=== PATIENT | female | born 1975 | race Caucasian/White ===

== ENCOUNTER 2022-04-16 09:10 | Emergency (ER) | payer SELFPAY ==
[2022-04-16 09:16] VITALS: BP 140/75; PULSE 75; RESP 18; TEMP 35.7; O2SAT 97; BMI 29.2
--- NOTE | 2022-04-16 09:47 | ED.GENADULT ---
HPI - General Adult General Chief complaint: Dizziness/Vertigo Stated complaint: elevated bp,dizzy,lightheaded Time Seen by Provider: 04/16/22 09:28 History of Present Illness HPI narrative: 46-year-old woman presenting to the emergency department with complaint of dizziness and some lightheadedness and feeling generally weak. She will at times mention that is feeling anxious but when asked directly denies anxiety. Does have some mild nausea which she then attributes to a minimal breakfast. This developed around the time of going to work about an hour ago. She does not recall any particular movement to set this off. She does say that things are spinning but that is not really going on now. No headache noted. Does have some mild double vision but this is not new and she had been wearing some corrective lenses with this and feels she needs re-evaluation. She also has had mid abdominal pain since cholecystectomy last summer. Has not apparently address this in follow-up. Had a similar episode to what she is feeling now a week ago that lasted about an hour and did not follow-up. When asked to demonstrate whether not there is dizziness or reproducibility she says that is not present. Was never feeling like she could not walk straight. Does not want any medicine for treatment at this time. Has had some sense of nasal congestion since COVID infection some time back. Is not having your fullness really. Underlying history of diabetes and is concerned about her blood pressure as well. I noted to be on arrival 140/75. Later mentioning ?stomach problems? and bloating. Related Data Home Medications Medication Instructions Recorded Confirmed amlodipine 10 mg tablet mg 04/16/22 atorvastatin 20 mg tablet mg 04/16/22 metformin 500 mg tablet,extended mg PO 04/16/22 release 24 hr Allergies Allergy/AdvReac Type Severity Reaction Status Date / Time Tetanus Vaccines and Toxoid Allergy Unknown Verified 04/16/22 09:22 Review of Systems Status of ROS: Reports: 10 or more systems reviewed and unremarkable except as noted in History and below [facility] Social History Smoking Status: Never smoker How often do you have a drink containing alcohol: never AUDIT-C Alcohol total score: 0 Non-prescribed substance use: denies use Exam Narrative: Exam Narrative: Pleasant. NAD. Cranial nerves 2-12 look to be intact. No nystagmus. She at times appears mildly breathless. Appears mildly anxious. Skin is warm and dry. No peripheral edema. Well perfused. Head is atraumatic. No reproducibility of dizziness at this time. Lungs are clear. Heart with regular rate and rhythm without murmur rub or gallop. Abdomen is soft and moderately tender to palpation directly in the midline mid upper abdomen. No masses or defect appreciated. No sensory deficits appreciated or any focal weakness. Const: Vital Signs, click to edit/add: Vital Signs - 24 hr 04/16/22 09:16 Temperature 96.3 F L Pulse Rate [Pulse Oximeter] 75 Respiratory Rate 18 Blood Pressure [Ri ght Upper Arm] 140/75 H Pulse Oximetry 97 Oxygen Delivery Me thod Room Air Documenting provider has reviewed patient's vital signs: yes Course Vital Signs Vital signs: Initial Vital Signs Temperature 96.3 F L 04/16/22 09:16 Temperature Source Temporal Artery Scan 04/16/22 09:16 Pulse Rate 75 04/16/22 09:16 Respiratory Rate 18 04/16/22 09:16 Blood Pressure 140/75 H 04/16/22 09:16 Blood Pressure Mean 96 04/16/22 09:16 Blood Pressure Position Supine 04/16/22 09:16 Pulse Oximetry 97 04/16/22 09:16 Oxygen Delivery Method 04/16/22 09:16 Vital Signs Temperature 96.3 F L 04/16/22 09:16 Pulse Rate 75 04/16/22 09:16 Respiratory Rate 18 04/16/22 09:16 Blood Pressure 140/75 H 04/16/22 09:16 Pulse Oximetry 97 04/16/22 09:16 Oxygen Delivery Method 04/16/22 09:16 Temperature 96.3 F L 04/16/22 09:16 Pulse Rate 75 04/16/22 09:16 Respiratory Rate 18 04/16/22 09:16 Blood Pressure 140/75 H 04/16/22 09:16 Pulse Oximetry 97 04/16/22 09:16 Oxygen Delivery Method 04/16/22 09:16 Medical Decision Making MDM Narrative Medical decision making narrative: Differential is potentially broad including cardiac. She does not have reproducible dizziness at this time. More of a general feeling of unwell. My sense is that these are episodes of anxiety flares. More vague symptoms at this time seem less consistent with CVA. Since she has not had follow-up since surgery, will check labs related to liver as well. Possible also the stomach issues are creating a vasovagal event of some sort. Did not feel she needed anything for nausea here in the emergency department. Also then able to tolerate p.o. so no IV fluids were given. With reassessment symptoms had abated she felt markedly improved. Lab Data Lab results reviewed: Yes I reviewed the patient's lab results Labs: Lab Results 04/16/22 04/16/22 04/16/22 Range/Units 09:45 09:57 09:57 WBC 9.39 (4.50-11.00) K/uL RBC 4.85 (4.00-5.20) m/uL Hgb 13.4 (12.0-16.0) gm/dL Hct 39.6 (33.0-51.0) % MCV 82 (80-100) fL MCH 28 (26-34) pg MCHC 34 (32-36) gm/dL RDW Coeff of Lukas 13.4 (11.5-15.5) % Plt Count 351 (140-440) K/uL Neut % (Auto) 73.0 H (42.0-72.0) % Lymph % (Auto) 21.2 (20-44) % Cross % (Auto) 4.8 (0.0-11.0) % Eos % (Auto) 0.4 (0.0-7.0) % Baso % (Auto) 0.3 (0.0-3.0) % Neut # (Auto) 6.90 (1.7-7.0) K/uL Lymph # (Auto) 1.99 (0.90-2.90) K/uL Cross # (Auto) 0.50 (0.00-0.90) K/UL Eos # (Auto) 0.04 (0.00-0.50) K/uL Baso # (Auto) 0.03 (0.00-0.30) K/uL Sodium 138 (135-149) mmol/L Potassium 3.7 (3.6-5.1) mmol/L Chloride 109 (96-114) mmol/L Carbon Dioxide 19 L (20-32) mmol/L BUN 10 (5-24) mg/dL Creatinine 0.4 L (0.5-1.5) mg/dL Estimated Creat Clear 153.37 Estimated GFR 124 ml/min Glucose 114 (60-115) mg/dL Calcium 8.9 (8.4-10.6) mg/dL Total Bilirubin 0.5 (0.1-1.5) mg/dL Direct Bilirubin 0.2 (0.0-0.5) mg/dL AST 27 (12-35) U/L ALT 32 (4-35) U/L Alkaline Phosphatase 103 (40-150) U/L Troponin I (0.01-0.04) ng/mL C-Reactive Protein 0.7 (0.5-1.0) mg/dL Total Protein 7.3 (6.0-8.3) g/dL Albumin 4.3 (3.3-5.0) g/dL Lipase 59 (23-300) U/L Urine Color Dark yellow (Yellow) Urine Appearance Cloudy A (Clear) Urine pH 5.5 (5.0-8.5) Ur Specific [place] >= 1.030 (1.000-1.030) Urine Protein Negative (Negative) Urine Glucose (UA) Negative (Negative) Urine Ketones Negative (Negative) Urine Blood Negative (Negative) Urine Nitrite Negative (Negative) Urine Bilirubin 1+ A (Negative) Urine Urobilinogen 0.2 (0.2-1.0) Ur Leukocyte Esterase Negative (Negative) Urine RBC 0-2 (0-2) Urine WBC 2-5 (0-5) Ur Squamous Epith Cells Moderate A (None-Few) Urine Bacteria Moderate A (None) Urine Mucus Moderate A (None) POC Troponin I (0.01-0.04) ng/ml 04/16/22 04/16/22 Range/Units 09:57 09:57 WBC (4.50-11.00) K/uL RBC (4.00-5.20) m/uL Hgb (12.0-16.0) gm/dL Hct (33.0-51.0) % MCV (80-100) fL MCH (26-34) pg MCHC (32-36) gm/dL RDW Coeff of Lukas (11.5-15.5) % Plt Count (140-440) K/uL Neut % (Auto) (42.0-72.0) % Lymph % (Auto) (20-44) % Cross % (Auto) (0.0-11.0) % Eos % (Auto) (0.0-7.0) % Baso % (Auto) (0.0-3.0) % Neut # (Auto) (1.7-7.0) K/uL Lymph # (Auto) (0.90-2.90) K/uL Cross # (Auto) (0.00-0.90) K/UL Eos # (Auto) (0.00-0.50) K/uL Baso # (Auto) (0.00-0.30) K/uL Sodium (135-149) mmol/L Potassium (3.6-5.1) mmol/L Chloride (96-114) mmol/L Carbon Dioxide (20-32) mmol/L BUN (5-24) mg/dL Creatinine (0.5-1.5) mg/dL Estimated Creat Clear Estimated GFR ml/min Glucose (60-115) mg/dL Calcium (8.4-10.6) mg/dL Total Bilirubin (0.1-1.5) mg/dL Direct Bilirubin (0.0-0.5) mg/dL AST (12-35) U/L ALT (4-35) U/L Alkaline Phosphatase (40-150) U/L Troponin I < 0.01 L (0.01-0.04) ng/mL C-Reactive Protein (0.5-1.0) mg/dL Total Protein (6.0-8.3) g/dL Albumin (3.3-5.0) g/dL Lipase Cancelled (23-300) U/L Urine Color (Yellow) Urine Appearance (Clear) Urine pH (5.0-8.5) Ur Specific [place] (1.000-1.030) Urine Protein (Negative) Urine Glucose (UA) (Negative) Urine Ketones (Negative) Urine Blood (Negative) Urine Nitrite (Negative) Urine Bilirubin (Negative) Urine Urobilinogen (0.2-1.0) Ur Leukocyte Esterase (Negative) Urine RBC (0-2) Urine WBC (0-5) Ur Squamous Epith Cells (None-Few) Urine Bacteria (None) Urine Mucus (None) POC Troponin I 0.00 L (0.01-0.04) ng/ml ECG Data Attestation: I personally reviewed and interpreted this ECG as follows: (Normal sinus rhythm rate of [address] elevations depressions or Q-waves.) Discharge Plan Discharge Clinical Impression: Malaise, Abdominal pain Patient Disposition: Home w/ Parent or Adult Condition: Improved Additional Instructions: Do make sure to stay well hydrated. Try to drink 2-3 L of water daily. I wonder if some of your stomach symptoms may have contributed to how you are feeling generally, also in your head. If this seems to be acting up again, you might try taking liquid antacid/anti-gas medication similar to Maalox. Sometimes after these abdominal surgeries people do have more trouble with bloating or other discomfort. I would encourage you to review symptoms with the surgeon. Try to avoid constipation. If you begin to feel more constipated, consider taking MiraLax equivalent 1-2 doses by noon and adjust to stool consistency. If feeling focal weakness, severe headache, recently severe abdominal pain, worsening and persistent dizziness, return to the emergency department. Prescriptions: No Action atorvastatin 20 mg tablet Label Comments: TAKE 1 TABLET BY MOUTH AT BEDTIME amlodipine 10 mg tablet Label Comments: TAKE 1 TABLET BY MOUTH ONCE DAILY metformin 500 mg tablet extended release 24 hr PO Label Comments: TAKE 1 TABLET BY MOUTH ONCE DAILY FOR 7 DAYS THEN 2 ONCE DAILY THEREAFTER TAKE BOTH TABLETS TOGETHER AT THE SAME TIME Follow Up/Referrals: Nakia Cummings MD [Primary Care Provider] - Stand Alone Forms: [facility] Info Instructions
[2022-04-16 10:04] LABS: Basophils Absolute Auto 0.03 K/uL (0.00-0.30); Basophils Percent Auto 0.3 % (0.0-3.0); Eosinophils Absolute Auto 0.04 K/uL (0.00-0.50); Eosinophils Percent Auto 0.4 % (0.0-7.0); Hematocrit 39.6 % (33.0-51.0); Hemoglobin* 13.4 gm/dL (12.0-16.0); Immature Granulocytes Abs Auto 0.03 K/uL (0.00-0.30); Immature Granulocytes Pct Auto 0.3 %; Lymphocytes Absolute Auto 1.99 K/uL (0.90-2.90); Lymphocytes Percent Auto 21.2 % (20-44); Mean Corpuscular HGB Conc 34 gm/dL (32-36); Mean Corpuscular Hemoglobin 28 pg (26-34); Mean Corpuscular Volume 82 fL (80-100); Monocytes Percent Auto 4.8 % (0.0-11.0); Platelet Count* 351 K/uL (140-440); RDW Coefficient of Variation % 13.4 % (11.5-15.5); Red Blood Count 4.85 m/uL (4.00-5.20); White Blood Count* 9.39 K/uL (4.50-11.00)
[2022-04-16 10:06] LABS: Slide Review Reflex No
[2022-04-16 10:14] LABS: Appearance Urine Cloudy (Clear); Bilirubin Urine 1+ (Negative); Blood Urine Negative (Negative); Color Urine Dark yellow (Yellow); Glucose Urine Negative (Negative); Ketones Urine Negative (Negative); Leukocyte Esterase Urine Negative (Negative); Nitrite Urine Negative (Negative); Protein Urine Negative (Negative); Specific Gravity Urine >= 1.030 (1.000-1.030); Urobilinogen Urine 0.2 (0.2-1.0); pH Urine 5.5 (5.0-8.5)
[2022-04-16 10:34] LABS: Bacteria Urine Moderate; RBC Urine 0-2 (0-2); Squamous Epithelial Cell Urine Moderate (None-Few)
[2022-04-16 10:35] LABS: Mucus Urine Moderate
[2022-04-16 10:44] LABS: Troponin I* < 0.01 ng/mL (0.01-0.04)
[2022-04-16 10:54] LABS: Albumin* 4.3 g/dL (3.3-5.0); Chloride* 109 mmol/L (96-114); Sodium* 138 mmol/L (135-149)
[2022-04-16 10:55] LABS: Potassium* 3.7 mmol/L (3.6-5.1)
[2022-04-16 10:57] LABS: Aspartate Amino Transferase* 27 U/L (12-35); Bilirubin Direct* 0.2 mg/dL (0.0-0.5); Bilirubin Total* 0.5 mg/dL (0.1-1.5); Carbon Dioxide* 19 mmol/L (20-32); Creatinine* 0.4 mg/dL (0.5-1.5); Est. Creatinine Clearance* 153.37; Estimated Glomerular Filt Rate 124 ml/min
[2022-04-16 10:58] LABS: Alanine Aminotransferase* 32 U/L (4-35); Alkaline Phosphatase* 103 U/L (40-150); Blood Urea Nitrogen* 10 mg/dL (5-24); Calcium* 8.9 mg/dL (8.4-10.6); Glucose* 114 mg/dL (60-115); Lipase* 59 U/L (23-300); Total Protein* 7.3 g/dL (6.0-8.3)
[2022-04-16 11:00] LABS: C Reactive Protein* 0.7 mg/dL (0.5-1.0)
== END 2022-04-16 11:57 | disposition home or self-care (01) ==
PROVIDERS: Emergency Provider Family Medicine; PCP Family Medicine
DX: R53.81 Other malaise (principal); R10.9 Unspecified abdominal pain
CPT/HCPCS: 36415; 80048; 80076; 81001; 82962; 83690; 84484; 85025; 86140; 87086; 87186; 93005; 99284

== ENCOUNTER 2023-11-14 12:50 | Emergency (ER) | payer OTHER, SELFPAY ==
[2023-11-14] VITALS (12 sets, daily range): BP systolic 134–150; BP diastolic 66–97; PULSE 79–89; RESP 16; TEMP 35.8; O2SAT 94–98; BMI 29.6
--- NOTE | 2023-11-14 13:42 | CRLHL7_ITS ---
For Patients: As a result of the Cures Act, medical imaging exams and procedure reports are released immediately into your electronic medical record. You may view this report before your referring provider. If you have questions, please contact your health care provider. INDICATION: Midsternal chest pain. TECHNIQUE: Chest 2 views. COMPARISON: None. FINDINGS: No pneumothorax or pleural effusion. Lungs are clear. Cardiac and mediastinal contours are within normal limits. Upper abdomen and osseous structures as imaged show no acute abnormality. IMPRESSION: No evidence of acute cardiopulmonary disease. Dictated by Iban Eastman MD @ 11/14/2023 2:35:39 PM (Electronically Signed)
--- OUTSIDE RECORDS SUMMARY | 2023-11-14 13:51 | XMS_ITS | Clinical Summary ---
Author Organization [employer] [facility] [employer] Address [place], [place] [address] Care Team Providers Care Janitorial Manager Name Role Phone Stephani Mata Primary Care Provider Allergies Active Allergy Reactions Criticality Noted Date Comments Tetanus And Diphtheria Toxoids, Adsorbed, Adult Edema 01/14/2014 Local swelling and edema. Medications Medication Sig Dispensed Refills Start Date End Date Status metFORMIN (GLUCOPHAGE XR) 500 mg Extended-Release tabletIndications:Ty pe 2 diabetes mellitus without complication, without long-term current use of insulin (HC) Take 2 Tablets (1,000 mg) by mouth two times daily with meals. 360 Tablet 3 07/07/2022 Active sertraline (ZOLOFT) 50 mg tabletIndications:An xiety Take 1 Tablet (50 mg) by mouth every morning. 90 Tablet 3 07/07/2022 Active traZODone (DESYREL) 50 mg tabletIndications:In somnia, idiopathic Take 1 Tablet (50 mg) by mouth at bedtime. 90 Tablet 3 07/07/2022 Active atorvastatin (LIPITOR) 20 mg tabletIndications:Ty pe 2 diabetes mellitus without complication, without long-term current use of insulin (HC) Take 1 Tablet (20 mg) by mouth at bedtime. 90 Tablet 3 07/07/2022 Active amLODIPine (NORVASC) 10 mg tabletIndications:HT N (hypertension) Take 1 Tablet (10 mg) by mouth once daily. 90 Tablet 3 07/07/2022 Active Active Problems Problem Noted Date Diagnosed Date Type 2 diabetes mellitus wit hout complication, without long-term current use of insulin 06/30/2021 HTN (hypertension) 06/30/2021 Insomnia 01/30/2014 Encounters Date Type Department Care Team Description 11/14/2023 Nurse Triage [facility] [address] [place] [address] Stephani Mata PA 11/11/2023 12:30 PM CDT Office Visit [facility] [address] [place] [address] Indy Ortega PsyD, LP Individual Therapy 11/11/2023 Travel 11/11/2023 Nurse Triage [facility] [address] [place] [address] Stephani Mata PA Irregular Heart Beat 11/11/2023 Nurse Triage [facility] [address] [place] [address] Stephani Mata PA 09/19/2023 8:30 AM CDT Office Visit [address] [phone] Maria C Pathak [facility] Visit; Individual Therapy 09/19/2023 Travel 09/05/2023 8:30 AM CDT Office Visit [address] [address] Maria C Pathak, [facility] Visit; [facility] Therapy[facility] 09/05/2023 Travel from Last 3 Months Immunizations Name Administration Dates Next Due COVID-19 vaccine (Moderna 100mcg/0.5mL) BETSY MARTINEZ 07/30/2020,07/02/2020 MMR 10/08/1998 Family History Medical History Relation Name Comments Diabetes Brother 1 Diabetes Brother 2 Good Health Brother 3 Diabetes Father Hypertension Father Diabetes Mother Hypertension Mother Diabetes Sister Hypertension Sister Cancer-breast No Family History Relation Name Status Comments Brother 1 Brother 2 Brother 3 Father Mother Sister Social History Tobacco Use Types Packs/Day Years Used Date Smoking Tobacco: Never Smokeless Tobacco: Never Tobacco Cessation:Counseling Given: No Alcohol Use Standard Drinks/Week Comments Not Currently 0 (1 standard drink = 0.6 oz pur e alcohol) PHQ-2 Answer Date Recorded PHQ-2 TOTAL SCORE 3 09/19/2023 Social Connections Answer Date Recorded Frequency of Communication with Friends and Fami ly Not on file 04/04/2021 Financial Resource Strain Answer Date R ecorded Difficulty of Paying Living Expenses Not on file 04/04/2021 Difficulty of Paying Living Expenses Not on file 04/04/2021 Sex and Gender Information Value Date Recorded Sex Assigned at Not on file Gender Identity Not on file Sexual Orientation Not on file Obstetrics History Last Filed Vital Signs Vital Sign Reading Time Taken Comments Blood Pressure 154/85 11/04/2022 11:44 AM CDT Pulse 81 11/04/2022 11:22 AM CDT Temperature 37.2 ??C (98.9 ??F) 08/07/2020 3:57 PM CD T Respiratory Rate 18 04/08/2014 11:05 AM INTENSIVE CARE UNIT REGISTERED NURSE Oxygen Saturation 97% 11/04/2022 11:22 AM CDT Inhaled Oxygen Concentration - - Weight 76.2 kg (168 lb) 11/04/2022 11:22 AM CDT Height 160.5 cm (5' 3.19) 09/30/2021 3:13 PM CD T Body Mass Index 29.58 09/30/2021 3:13 PM CDT Plan of Treatment Upcoming Encounters Date Type Department Care Team (Late st Contact Info) Description 11/17/2023 8:10 AM CDT Office Visit [facility] [address] [place] [address] Mehreen Feliciano MD [address] [place] [address] Health Maintenance Due Date Last Done Comments Pneumococcal series for age 6-64 (1 of 2 - PCV) 1982 HIV for age 15-65 1991 Hepatitis C screening for ag e 18-79 1994 Hepatitis B series for Diabe brad (1 of 3 - 19+ 3-dose series) 1995 Fecal testing non-DNA (FIT,FOBT,iFOBT) for age 45-75 07/03/2022 07/03/2021 BMI (ht and wt on same day) for age 18+ 09/30/2022 09/30/2021, 06/30/2021, 05/25/2021, Additional history exists COVID-19 vaccine series ( season) 2022 04/26/2021, 07/30/2020, 07/02/2020 Mammogram for age 45-75 07/13/2023 07/12/2022, 08/27 Influenza for age 9-49 12/04/2023 Depression screening for age 12+ 09/18/2024 09/19/2023, 09/05/2023, 01/06/2023, Additional history exists Pap test for age 21-65 07/01/2025 07/01/2020, 2020 Lipids for age 45-75 07/08/2027 07/07/2022, 06/17/2021, 06/10/2020, Additional history exists Procedures Procedure Name Priority Date/Time Associated Diagnosis Comments XR MAMMO BILAT SCREENING Routine 07/12/2022 11:23 AM CDT Visit for screening mammogram LC LIPID PANEL AND CHOL/HDL RATIO Routine 07/07/2022 9:05 AM CDT Type 2 diabetes mellitus without complication, without long-term current use of insulin (HC) OCCULT BLOOD IFOBT STOOL Routine 07/03/2021 11:03 AM CDT Screening for colon cancer HUMAN RESOURCES TEAM MEMBER THIN PREP PAP SCREEN IMAGED Routine 07/01/2020 10:05 AM CDT Pap smear for cervical cancer screening from Last 3 Months or Most Recently Relevant to Health Maintenance Results * XR MAMMO BILAT SCREENING (07/12/2022 11:23 AM CDT) Anatomical Region Laterality Modality BREASTS, Breast Left, Breast Right Bilateral Mammography Impressions 07/12/2022 3:53 PM CDT ??There is no radiographic evidence for malignancy. ??Recommend annual mammograms. MAMMOGRAM ASSESSMENT: ??ACR 1 Negative PATIENTS: You will also receive a letter with your examination results in an easy to read format. ??If you have questions about your results, please contact your referring provider. Narrative 07/12/2022 3:53 PM CDT For Patients: As a result of the Century Cures Act, medical imaging exams and procedure reports are released immediately into your electronic medical record. You may view this report before your referring provider. If you have questions, please contact your health care provider. XR MAMMO BILAT SCREENING [[id number]] CLINICAL HISTORY: ??This is an asymptomatic 47 y.o. patient. INDICATION FOR EXAM: Mammogram Screening. TECHNIQUE: CC & MLO views were obtained. ??This study was evaluated with the assistance of Computer-Aided Detection. COMPARISON FILM: Yes 08/27/20 As Seen on TV ?? FINDINGS: ??The breasts have scattered areas of fibroglandular density. There are no dominant masses, suspicious micro calcifications or areas of architectural distortion. Stephani Mata PA MAMMO * (ABNORMAL) LC LIPID PANEL AND CHOL/HDL RATIO (07/07/2022 9:05 AM CDT) Pathologist [facility] Cholesterol, Total 221(H) 100 - 199 mg/dL 07/09/2022 10:10 AM [facility] Triglycerides 204(H) 0 - 149 mg/dL 07/09/2022 10:10 AM T [facility] HDL Cholesterol 45 >39 mg/dL 3 10:10 AM CDT [facility] VLDL Cholesterol John 37 5 - 40 mg/dL 07/09/2022 10:10 AM T [facility] LDL Chol Calc ([facility]) 139(H) 0 - 99 mg/dL 07/09/2022 10:10 AM T [facility] T. Chol/HDL Ratio 4.9(H) 0.0 - 4.4 ratio 07/09/2022 10:10 AM T [facility] Comment: ?T. Chol/HDL Ratio ?Men ??Women ?1/2 Avg.Risk ??3.4 ?3.3 ?Avg.Risk ??5.0 ?4.4 ? 2X Avg.Risk ??9.6 ?7.1 ? 3X Avg.Risk 23.4 ?? 11.0 Blood BLOOD SPECIMEN / Unknown Venipuncture / Unknown 07/07/2022 9:05 AM CDT 07/07/2022 9:07 AM CDT Narrative [facility] - 07/09/2022 10:10 AM CDT Performed at: ??01 - [facility] [address], [place] ??[id number] Special Needs Teacher: Angel Coles MD, Phone: ??[phone] Stephani BRIDGES SEND OUTS [facility] [address] [place] [id number], * OCCULT BLOOD IFOBT STOOL (07/03/2021 11:03 AM CDT) STOOL BLOOD ,IFOBT Negative Negative 07/06/2021 11:59 AM CDT [facility] Stool STOOL SPECIMEN / Unknown Non-Blood / Unknown 07/03/2021 11:03 AM CDT 07/06/2021 11:03 AM CDT Stephani BRIDGES LABORAT[facility] Performing Organization Address [facility]/State/ZIP Co de Phone Number [facility] [address] [place] [address], * HUMAN RESOURCES TEAM MEMBER THIN PREP PAP SCREEN IMAGED (07/01/2020 10:05 AM CDT) Case Report Gynecologic Cytology Report ? Case: [id number] ? Authorizing Provider: ??Stephani Mata PA Collected: ? 07/01/2020 1005 ? Ordering Location: ? [facility] ?? Received: ?07/01/2020 1052 ? Clinic ? First Screen: ?Jude Smith ? Specimen: ?HUMAN RESOURCES TEAM MEMBER ThinPrep Vial Screening, Cervical ? 07/10/2020 8:14 AM CDT [facility] INTERPRETATION/ RESULT NEGATIVE FOR INTRAEPITHELIAL LESION OR MALIGNANCY (NIL) (none) 07/10/2020 8:14 AM CDT [facility] IMEN ADEQUACY Satisfactory for evaluation Endocervical component present 07/10/2020 8:14 AM CDT [facility] HPV REQUEST HPV and PAP 07/10/2020 8:14 AM CDT [facility] Date of LMP unknown 07/10/2020 8:14 AM CDT [facility] Last Pap Date unknown 07/10/2020 8:14 AM CDT [facility] Last Pap Result First Pap/Unknown 8:14 AM CDT [facility] Abnormal Pap or [place] Bx in last 5 years No 07/10/2020 8:14 AM CDT [facility] Menstrual Status Irregular Periods 07/10/2020 8:14 AM CDT [facility] [place] Bx Done Today No 07/10/2020 8:14 AM CDT [facility] Additional Information None given 07/10/2020 8:14 AM CDT [facility] Comment: Cytology is screened at [facility], Central Laboratory - [address], [place] [address] and [facility] - [address] [place] [address], [place] [address] and [facility] - [address] [place] [address] Interpreted at [facility] - [address] [place] [address], [place] [address] Automated Review Successful 07/10/2020 8:14 AM CDT [facility] Comment:Specimen processed s uccessfully by automated semiconductor development technician device, ThinPrep Imaging System, [employer] ANCILLARY TESTING HUMAN RESOURCES TEAM MEMBER HPV Ordered, Please see separate report 07/10/2020 8:14 AM CDT [facility] Note The pap test is a screening technique, not a diagnostic procedure. It is used primarily to screen for squamous cancers and precursor lesions. Published studies have shown that it is subject to both false negative and false positive results. The pap test should not be used as the sole means to diagnose or exclude pre-malignant and malignant lesions. 07/10/2020 8:14 AM CDT [facility] Other (Cervical) Non-Blood / Unknown 07/01/2020 10:05 AM CDT 07/01/2020 10:52 AM CDT Stephani BRIDGES PATHOLOGY/CYTOL OGY [facility] [address] [place] [address], from Last 3 Months or Most Recently Relevant to Health Maintenance Care Teams Janitorial Manager Relationship Specialty Start Date End Date Stephani Mata PA [address] [place] [address] PCP - General Physician Assistant Basketball Coach 07/01/20
[2023-11-14 14:05] LABS: Basophils Absolute Auto 0.06 K/uL (0.00-0.30); Basophils Percent Auto 0.6 % (0.0-3.0); Eosinophils Absolute Auto 0.06 K/uL (0.00-0.50); Eosinophils Percent Auto 0.6 % (0.0-7.0); Hematocrit 41.4 % (33.0-51.0); Hemoglobin* 13.6 gm/dL (12.0-16.0); Immature Granulocytes Abs Auto 0.02 K/uL (0.00-0.30); Immature Granulocytes Pct Auto 0.2 %; Lymphocytes Absolute Auto 3.98 K/uL (0.90-2.90); Lymphocytes Percent Auto 40.7 % (20-44); Mean Corpuscular HGB Conc 33 gm/dL (32-36); Mean Corpuscular Hemoglobin 27 pg (26-34); Mean Corpuscular Volume 84 fL (80-100); Monocytes Percent Auto 6.2 % (0.0-11.0); Neutrophils Absolute Auto 5.04 K/uL (1.7-7.0); Neutrophils Percent Auto 51.7 % (42.0-72.0); Platelet Count* 368 K/uL (140-440); RDW Coefficient of Variation % 13.1 % (11.5-15.5); Red Blood Count 4.96 m/uL (4.00-5.20); White Blood Count* 9.77 K/uL (4.50-11.00)
[2023-11-14 14:10] LABS: Slide Review Reflex No
[2023-11-14 14:20] LABS: Chloride* 108 mmol/L (96-114); Potassium* 3.7 mmol/L (3.6-5.1); Sodium* 138 mmol/L (135-149)
[2023-11-14 14:22] LABS: Creatinine* 0.6 mg/dL (0.5-1.5); Est. Creatinine Clearance* 95.88; Estimated Glomerular Filt Rate 111 ml/min
[2023-11-14 14:23] LABS: Anion Gap 8 mEq/L (7-15); Blood Urea Nitrogen* 14 mg/dL (5-24); Calcium* 9.2 mg/dL (8.4-10.6); Carbon Dioxide* 22 mmol/L (20-32); Glucose* 126 mg/dL (60-115); Magnesium* 2.2 mg/dL (1.5-2.6)
--- NOTE | 2023-11-14 14:30 | ED_ITS ---
HPI - General Adult General Chief complaint: Hypertension Stated complaint: heart palpitations and dizzy Time Seen by Provider: 11/14/23 13:30 Source: patient and splitter head Mode of arrival: ambulatory Limitations: no limitations and language barrier History of Present Illness HPI narrative: Patient is a 48-year-old female presenting to emergency department for chest pressure and palpitations. Has states for the past week she has been having intermittent palpitations and feeling like chest pressure. Denies ever having symptoms like this. Has had some shortness of breath a few weeks ago but nothing recently.. He does loosen blood pressures we hired the door will it whole with systolics being up to 180. Has not had any nausea or vomiting. Denies fevers, chills, vision changes, weakness, numbness, abdominal pain, lightheadedness. Has had dizziness this morning that has since resolved but I can not emergency department. Is also having headache at home that has since resolved. No history of heart disease. No history of blood clots. States the chest pressure initially was very intermittent but seems to becoming more constant. Does not radiate anywhere. Related Data Home Medications ?Medication ?Instructions ?Recorded ?Confirmed amlodipine 10 mg tablet 10 mg PO DAILY 04/16/22 11/14/23 atorvastatin 20 mg tablet 20 mg PO DAILY 04/16/22 11/14/23 metformin 500 mg tablet,extended 500 mg PO DAILY 04/16/22 11/14/23 release 24 hr Allergies Allergy/AdvReac Type Severity Reaction Status Date / Time Tetanus Vaccines and Toxoid Allergy Unknown Verified 11/14/23 13:25 Review of Systems Status of ROS: Reports: 10 or more systems reviewed and unremarkable except as noted in History and below [facility] Social History Smoking Status: Never smoker Do you use any of these nicotine containing products: None Second hand tobacco smoke exposure: No How often do you have a drink containing alcohol: never AUDIT-C Alcohol total score: 0 Non-prescribed substance use: denies use service: No Exam Narrative: Exam Narrative: Const: Well-nourished, Well-developed, in mild distress Eyes: PERRL, no conjunctival injection, and symmetrical lids HENT: Atraumatic external nose and ears. Moist mucous membranes. Neck: Symmetric, trachea midline, No thyromegaly. CVS: RRR, No murmurs or gallops. Peripheral pulses 2+ and equal in all extremities RESP: Unlabored respiratory effort. Clear to auscultation bilaterally. GI: Nontender/Nondistended, No rebound or guarding. MSK:Extremities w/o deformity, Normal Active ROM, pain to palpation of chest but this is not reproducing the sensation she was having earlier Skin: Warm, Dry. No rashes or lesions. Neuro: Normal Muscle tone, No focal neurological deficits. Psych: Awake, Alert, & Oriented x3. Appropriate mood and affect. Const: Vital Signs, click to edit/add: Vital Signs - 24 hr 11/14/23 13:17 11/14/23 13:35 11/14/23 13:36 Temperature 96.5 F L Pulse Rate 82 89 Pulse Rate [Pulse Oximeter] 84 Respiratory Rate 16 Blood Pressure 144/82 H Blood Pressure [Ri ght Upper Arm] 150/86 H Pulse Oximetry 96 98 97 Oxygen Delivery Me thod Room Air 11/14/23 14:04 11/14/23 14:05 11/14/23 14:30 Temperature Pulse Rate 79 85 80 Pulse Rate [Pulse Oximeter] Respiratory Rate Blood Pressure Blood Pressure [Ri ght Upper Arm] Pulse Oximetry 98 98 96 Oxygen Delivery Me thod 11/14/23 14:31 11/14/23 15:00 11/14/23 15:01 Temperature Pulse Rate 82 88 82 Pulse Rate [Pulse Oximeter] Respiratory Rate Blood Pressure 138/66 150/88 H Blood Pressure [Ri ght Upper Arm] Pulse Oximetry 96 98 96 Oxygen Delivery Me thod 11/14/23 15:15 11/14/23 15:30 11/14/23 15:31 Temperature Pulse Rate 84 80 84 Pulse Rate [Pulse Oximeter] Respiratory Rate Blood Pressure 134/97 H 150/85 H Blood Pressure [Ri ght Upper Arm] Pulse Oximetry 96 94 96 Oxygen Delivery Me thod Course Vital Signs Vital signs: Initial Vital Signs Temperature 96.5 F L 11/14/23 13:17 Temperature Source Temporal Artery Scan 11/14/23 13:17 Pulse Rate 84 11/14/23 13:17 Pulse Rhythm Regular 11/14/23 13:17 Pulse Strength 3+ Normal 11/14/23 13:17 Respiratory Rate 16 11/14/23 13:17 Blood Pressure 150/86 H 11/14/23 13:17 Blood Pressure Mean 107 H 11/14/23 13:17 Blood Pressure Position Sitting 11/14/23 13:17 Pulse Oximetry 96 11/14/23 13:17 Oxygen Delivery Method Room Air 11/14/23 13:17 Vital Signs Temperature 96.5 F L 11/14/23 13:17 Pulse Rate 84 11/14/23 13:17 Respiratory Rate 16 11/14/23 13:17 Blood Pressure 150/86 H 11/14/23 13:17 Pulse Oximetry 96 11/14/23 13:17 Oxygen Delivery Method Room Air 11/14/23 13:17 Temperature 96.5 F L 11/14/23 13:17 Pulse Rate 84 11/14/23 15:31 Respiratory Rate 16 11/14/23 13:17 Blood Pressure 150/85 H 11/14/23 15:31 Pulse Oximetry 96 11/14/23 15:31 Oxygen Delivery Method Room Air 11/14/23 13:17 Medical Decision Making MDM Narrative Medical decision making narrative: Patient is a 48-year-old female presenting to emergency department for chest pressure and dizziness. Dizziness has fully resolved by time I by the patient. The differential diagnosis of chest pain is broad and includes common etiologies such as musculoskeletal strain, GERD, pneumonia, etc. More serious etiologies considered include PE, coronary artery disease, pneumothorax, aortic dissection, aortic aneurysm. While she is tender to palpation of the chest she states that pain was different was she is feeling earlier. She is PERC negative so PE can not be ruled out at this time. Will do a chest x-ray, troponin, EKG, magnesium, BMP, CBC, COVID/flu. Lab work returned showing no concerning abnormalities. Troponin within normal limits. Concerns is going on for a we could do not believe a repeat troponin is necessary. EKG shows no concerning abnormalities. COVID/flu/RSV is negative. Chest x-ray reviewed by myself and Rodrigo shows no concerning findings. She had no abnormalities on continuous cardiac monitoring while in the emergency department. She does state when she has palpitations same time she gets the chest pressure. This could be related to an arrhythmia but do not believe she needs to stay in the hospital for monitoring. She has a appointment with her primary care provider this . She was speak to her PCP at that time about possible heart monitor. While she was hypertensive at home her blood pressure is not overly high in the emergency department sounds like it was not reaching hypertensive emergency levels at home. Patient be discharged at this time and she is agreeable to this plan. Lab Data Labs: Lab Results 11/14/23 Range/Units 13:52 WBC 9.77 (4.50-11.00) K/uL RBC 4.96 (4.00-5.20) m/uL Hgb 13.6 (12.0-16.0) gm/dL Hct 41.4 (33.0-51.0) % MCV 84 (80-100) fL MCH 27 (26-34) pg MCHC 33 (32-36) gm/dL RDW Coeff of Lukas 13.1 (11.5-15.5) % Plt Count 368 (140-440) K/uL Neut % (Auto) 51.7 (42.0-72.0) % Lymph % (Auto) 40.7 (20-44) % [place] % (Auto) 6.2 (0.0-11.0) % Eos % (Auto) 0.6 (0.0-7.0) % Baso % (Auto) 0.6 (0.0-3.0) % Neut # (Auto) 5.04 (1.7-7.0) K/uL Lymph # (Auto) 3.98 H (0.90-2.90) K/uL [place] # (Auto) 0.60 (0.00-0.90) K/UL Eos # (Auto) 0.06 (0.00-0.50) K/uL Baso # (Auto) 0.06 (0.00-0.30) K/uL Abs Immat Gran (auto) 0.02 (0.00-0.30) K/uL Imm/Tot Granulo (auto) 0.2 % Sodium 138 (135-149) mmol/L Potassium 3.7 (3.6-5.1) mmol/L Chloride 108 (96-114) mmol/L Carbon Dioxide 22 (20-32) mmol/L Anion Gap 8 (7-15) mEq/L BUN 14 (5-24) mg/dL Creatinine 0.6 (0.5-1.5) mg/dL Estimated Creat Clear 95.88 Estimated GFR 111 ml/min Glucose 126 H (60-115) mg/dL Calcium 9.2 (8.4-10.6) mg/dL Magnesium 2.2 (1.5-2.6) mg/dL SARS-CoV-2 (PCR) Negative SARS-CoV-2 (Negative) Influenza Type A (PCR) Negative PCR FLU A (Negative) Influenza Type B (PCR) Negative PCR FLU B (Negative) RSV (PCR) Negative PCR RSV (Negative) POC Troponin I 0.00 L (0.01-0.04) ng/ml Imaging Data Chest x-ray: Radiologist's impression: No evidence of acute cardiopulmonary disease. Dictated by Iban Eastman MD @ 11/14/2023 2:35:39 PM ECG Data Attestation: I personally reviewed and interpreted this ECG as follows: Prior ECG tracings: available for review Interpretation: Sinus rhythm with a PVC at a rate of 83 beats per minute, normal intervals, normal axis, no ST or T-wave abnormalities. Looks similar to previous EKG on file. Discharge Plan Discharge Clinical Impression: Atypical chest pain Patient Disposition: Home, Self-Care Condition: Stable Instructions: Noncardiac Chest Pain (ED) Additional Instructions: Make sure to follow-up with the primary care provider on . I recommend asking about possible heart monitor. Return to emergency department for new or worsening symptoms. Prescriptions: No Action atorvastatin 20 mg tablet 20 mg PO DAILY Patient Comments: TAKE 1 TABLET BY MOUTH AT BEDTIME amlodipine 10 mg tablet 10 mg PO DAILY Patient Comments: TAKE 1 TABLET BY MOUTH ONCE DAILY metformin 500 mg tablet extended release 24 hr 500 mg PO DAILY Patient Comments: TAKE 1 TABLET BY MOUTH ONCE DAILY FOR 7 DAYS THEN 2 ONCE DAILY THEREAFTER TAKE BOTH TABLETS TOGETHER AT THE SAME TIME Follow Up/Referrals: Nakia Cummings MD [Primary Care Provider] - Stand Alone Forms: [employer] Info Instructions
[2023-11-14 14:50] LABS: PCR FLU A Negative PCR FLU A (Negative); PCR FLU B Negative PCR FLU B (Negative); PCR RSV Negative PCR RSV (Negative); SARS PCR* Negative SARS-CoV-2 (Negative)
== END 2023-11-14 16:17 | disposition home or self-care (01) ==
PROVIDERS: Emergency Provider Student in an Organized Health Care Education/Training Program; PCP Family Medicine
DX: R07.89 Other chest pain (principal)
CPT/HCPCS: 36415; 71046; 80048; 83735; 84484; 85025; 87631; 93005; 99283; 99284; 99285